=== PATIENT | female | born 2005 | race Caucasian/White ===

== ENCOUNTER 2024-12-29 02:50 | Emergency (ER) | payer BC ==
[2024-12-29 03:23] LABS: Glucose, Urine (Dipstick) Normal (Negative); Leukocyte 500 (Negative); Protein, Urine (Dipstick) 100 mg/dl (Neg-Trace); Specific Gravity, Urine 1.010 (1.005-1.030)
[2024-12-29 03:25] LABS: Pregnancy Test - Urine (BHCG) Negative (Negative); Pregu Control Background? CLEAR/WHITE (CLR/WHITE); Pregu Control Bar Appear? YES (CONTROL BAR)
[2024-12-29 03:36] LABS: Bacteria/HPF 1+ HPF (None Seen); CAUTI Indications for Culture Pelvic or flank pain; RBC/HPF 21-50 HPF (0-3); WBC/HPF Greater than 50 HPF (0-3)
[2024-12-29 03:37] LABS: Urine Culture Reflex Yes Yes
[2024-12-29] MEDS ORDERED: cefTRIAXone (ROCEPHIN) 1 GM VIAL ONE (03:41)
[2024-12-29] MEDS ORDERED: Ibuprofen 200 MG TAB ONE (03:48)
== END 2024-12-29 04:09 | disposition home or self-care (01) ==
LOC: CSHERS 02:50
DX: N39.0 Urinary tract infection, site not specified (principal); I10 Essential (primary) hypertension
CPT/HCPCS: 81001; 81025; 87077; 87086; 96372; 99283; J0696